=== PATIENT | female | born 1970 | race Caucasian/White ===

== ENCOUNTER 2022-05-27 15:03 | Emergency (ER) | payer OTHER ==
[2022-05-27 15:41] VITALS: BP 118/73; PULSE 89; RESP 18; TEMP 97.8; BMI 22.7
[2022-05-27] MEDS ORDERED: metroNIDAZOLE 250 MG TABLET PO ONE (16:19)
[2022-05-27] MEDS ORDERED: metroNIDAZOLE 250 MG TABLET ONE (16:24)
[2022-05-27 17:53] LABS: EPITHELIAL CELLS FEW /hpf
== END 2022-05-27 16:35 | disposition home or self-care (01) ==
LOC: FER 15:03
DX: N76.0 Acute vaginitis (principal)
CPT/HCPCS: 36415; 81003; 81015; 82962; 87491; 87591; 99283-25

== ENCOUNTER 2022-10-26 05:42 | Emergency (ER) | payer OTHER ==
[2022-10-26 05:55] VITALS: BP 113/68; PULSE 96; RESP 16; TEMP 98.1; BMI 26.5
[2022-10-26] MEDS ORDERED: NAPROXEN 500 MG TABLET PO ONE (05:59)
[2022-10-26] MEDS ORDERED: NAPROXEN 500 MG TABLET ONE (05:59)
== END 2022-10-26 07:00 | disposition home or self-care (01) ==
LOC: FER 05:42
DX: M25.572 Pain in left ankle and joints of left foot (principal); R22.42 Localized swelling, mass and lump, left lower limb
CPT/HCPCS: 99283-25

== ENCOUNTER 2022-12-29 07:35 | Emergency (ER) | payer SELFPAY ==
[2022-12-29 08:04] VITALS: BP 116/81; PULSE 75; RESP 18; TEMP 97.8; BMI 28.3
== END 2022-12-29 08:51 | disposition home or self-care (01) ==
LOC: FER 07:35
DX: S20.212A Contusion of left front wall of thorax, initial encounter (principal); W50.1XXA Accidental kick by another person, initial encounter; Y92.009 Unspecified place in unspecified non-institutional (private) residence as the place of occurrence of the external cause; Z20.822 Contact with and (suspected) exposure to COVID-19
CPT/HCPCS: 0241U-QW; 71046-TC-FY; 71101-TC-LT-FY; 99284-25